=== PATIENT | female | born 1990 ===

== ENCOUNTER 2018-10-15 08:19 | Emergency (ER) | payer BC ==
[2018-10-15 08:35] VITALS: BP 116/81
--- NOTE | 2018-10-15 08:57 | UC ---
Abdominal Pain Female HPI - HPI Summary HPI Summary: Ms. Lyons has been having sharp intermittent pains in her RUQ for several days. She has felt constipated and used prunes, water, mag citrate and gel suppositories without any relief. She denies any dysuria. - History of Current Complaint Chief Complaint: UCAbdominalPain Stated Complaint: SHARP RT SIDE PAIN Time Seen by Provider: 10/15/18 08:43 Hx Obtained From: Patient Hx Last Menstrual Period: 09/24/18 ?: No Onset/Duration: Gradual Onset Timing: Intermittent Episodes Lasting: - seconds Severity Initially: Mild Severity Currently: Moderate Pain Intensity: 5 Location: Discrete At: RUQ Radiates: Yes Radiates to: Back Character: Sharp Aggravating Factor(s): Nothing Alleviating Factor(s): Nothing Associated Signs and Symptoms: Positive: Negative Allergies/Adverse Reactions: Allergies Allergy/AdvReac Type Severity Reaction Status Date / Time No Known Allergies Allergy Verified 10/15/18 08:27 Home Medications: Home Medications NK [No Home Medications Reported] 10/15/18 [History Confirmed 10/15/18] PMH/Surg Hx/FS Hx/Imm Hx Previously Healthy: Yes - Surgical History Surgical History: None - Social History Alcohol Use: None Substance Use Type: None Smoking Status (MU): Light Every Day Tobacco Smoker Type: Cigarettes Amount Used/How Often: 4 cigs/ day Review of Systems All Other Systems Reviewed And Are Negative: Yes Constitutional: Positive: Negative Skin: Positive: Negative Eyes: Positive: Negative ENT: Positive: Negative Respiratory: Positive: Negative Cardiovascular: Positive: Negative Gastrointestinal: Positive: Abdominal Pain Genitourinary: Positive: Negative Motor: Positive: Negative Neurovascular: Positive: Negative Musculoskeletal: Positive: Negative Is Patient Immunocompromised?: No Physical Exam - Summary Physical Exam Summary: She was non-toxic in appearance with stable vitals. Triage Information Reviewed: Yes Appearance: Well-Appearing Vital Signs: Initial Vital Signs Temp 97.9 F 10/15/18 08:27 Pulse 84 10/15/18 08:27 Resp 16 10/15/18 08:27 BP 116/81 10/15/18 08:27 Pulse Ox 97 10/15/18 08:27 Vital Signs Reviewed: Yes Eye Exam: Normal ENT Exam: Normal Neck exam: Normal Respiratory Exam: Normal Abdominal Exam: Other - RUQ tenderness with mild See's Musculoskeletal Exam: Normal Neurological Exam: Normal Psychological Exam: Normal Skin Exam: Normal Diagnostics - Radiology GB U/S Radiology Interpretation Completed By: Radiologist - Gallstones with no cholecystitis. No hydronephrosis Abd Pain Female Course/Dx - Course Course Of Treatment: We talked about the situation. She has gallstones but it is unclear if they are causing the symptoms. I offered to draw blood for delayed results but she wants to wait. She will try a low fat diet for a few days and knows to F/U if she is not improving and to go to the ED if she is worsening or if she develops new symptoms such as fever or vomiting. - Differential Dx/Diagnosis Provider Diagnosis: Biliary colic, Abdominal pain Discharge - Sign-Out/Discharge Documenting (check all that apply): Patient Departure All imaging exams completed and their final reports reviewed: Yes - Discharge Plan Condition: Stable Disposition: HOME Patient Education Materials: Biliary Colic (ED), Abdominal Pain (ED), Low Fat Diet (ED) Referrals: No Primary Care Phys,NOPCP [Primary Care Provider] - - Billing Disposition and Condition Condition: STABLE Disposition: Home
--- NOTE | 2018-10-16 16:20 | UC ---
- Progress Note Progress Note: 10/16/2018 Urine culture final report: no growth No change Suzanne Sotomayor PA-c Course/Dx - Diagnoses Provider Diagnoses: Biliary colic, Abdominal pain Discharge - Sign-Out/Discharge Documenting (check all that apply): Post-Discharge Follow Up All imaging exams completed and their final reports reviewed: Yes - Discharge Plan Condition: Stable Disposition: HOME Patient Education Materials: Biliary Colic (ED), Low Fat Diet (ED), Abdominal Pain (ED) Referrals: No Primary Care Phys,NOPCP [Primary Care Provider] - - Billing Disposition and Condition Condition: STABLE Disposition: Home
== END 2018-10-15 10:22 | disposition home or self-care (01) ==
LOC: UCEAST 08:19
DX: K80.50 Calculus of bile duct without cholangitis or cholecystitis without obstruction (principal); K80.20 Calculus of gallbladder without cholecystitis without obstruction; R10.11 Right upper quadrant pain; F17.210 Nicotine dependence, cigarettes, uncomplicated
CPT/HCPCS: 76705; 81003; 84702; 87086; 99211; G0463